=== PATIENT | female | born 1990 | race Caucasian/White ===

== ENCOUNTER → 2020-02-10 | Outpatient (CLI) | payer BC, MEDICAID ==
[~2020-02-10] MED LIST: CPR500T PO; HYDR-3729 PO; Ibuprofen PO; PREN-93 PO
--- NOTE | 2020-02-10 10:28 | Diagnostic Imaging Report ---
PROCEDURE: US OB SINGLE FETUS <14 WKS. TECHNIQUE: Multiple Real-time grayscale images were obtained over the gravid uterus in various projections. INDICATION: dating. FINDINGS: There is an intrauterine gestational sac containing a pole. The crown/rump length measurement is consistent with an approximately 9 week 4 day gestation. The heart rate was recorded at 167 BPM. There is an area of probable subchorionic bleed along the posterior aspect of the gestational sac. The adnexa are unremarkable. IMPRESSION: Single live IUP of 9 weeks 4 days gestational age. The estimated date of confinement sonographically is 09/10/2020. There is a small subchorionic hemorrhage. Dictated by: Dictated on workstation # [id number]
== END ==
LOC: RAD 10:00
PROVIDERS: ATTEND Family Medicine
DX: Z34.91 Encounter for supervision of normal pregnancy, unspecified, first trimester (principal); Z3A.09 9 weeks gestation of pregnancy
CPT/HCPCS: 76801

== ENCOUNTER → 2020-04-13 | Outpatient (CLI) | payer BC ==
--- NOTE | 2020-04-13 16:56 | Diagnostic Imaging Report ---
INDICATION: Routine survey. TECHNIQUE: Multiple real-time grayscale images were obtained over the gravid uterus. COMPARISON: None FINDINGS: Single live intrauterine is identified. heart rate is documented at 149 bpm. position is breech. Cervix is long and closed. It measures 5.6 cm in length. Placenta is anterior, not low-lying. Formal anatomic survey was performed. Four-chamber heart cannot be adequately visualized due to position and maternal body habitus. Otherwise, anatomic survey is grossly unremarkable. Based on today's exam, estimated gestational age is 19 weeks and 3 days with estimated date of delivery of 09/04/2020 Clinical dates: 18 weeks and 3 days with estimated date of delivery of 09/11/2020. Please see below for additional details and size measurements. IMPRESSION: 1. Single live intrauterine . Again, four-chambered heart is suboptimally visualized. Continued follow-up is advised. 2. Estimated weight above 95th percentile consistent with macrosomia. Again, follow-up is advised. Biometrical measurements are as follows: Biparietal 4.23 cm, age 18 weeks 6 days. Head circumference 16.77 cm, age 19 weeks 4 days. Abdominal circumference 12.97 cm, age 18 weeks 4 days. Femur length 3.38 cm, age 20 weeks 5 days. Sonographic estimate age: 19 weeks 3 days. Sonographic estimated date of delivery: 09/04/2020. Estimated Weight: 295 gm (+/- 43 gm). LMP percentile: 95%. heart rate: 149 beats per minute. number: 1 of 1. Dictated by: Dictated on workstation # [id number]
== END ==
LOC: RAD 14:35
PROVIDERS: ATTEND Family Medicine
DX: Z36.9 Encounter for antenatal screening, unspecified (principal)
CPT/HCPCS: 76805

== ENCOUNTER → 2020-06-09 | Outpatient (CLI) | payer BC ==
--- NOTE | 2020-06-09 13:37 | Diagnostic Imaging Report ---
INDICATION: Evaluate growth. TECHNIQUE: Multiple real-time grayscale images were obtained over the gravid uterus. COMPARISON: 04/13/2020. FINDINGS: There is a single live fetus in a cephalic presentation. heart rate was recorded at 140 bpm. Placenta is anterior. Amniotic fluid index is 14.3 cm. A four-chamber heart view is noted on today's study. Biometrical measurements are as follows: Biparietal 7.15 cm, age 28 weeks 5 days. Head circumference 27.27 cm, age 29 weeks 6 days. Abdominal circumference 25.65 cm, age 29 weeks 6 days. Femur length 5.45 cm, age 28 weeks 6 days. Sonographic estimate age: 29 weeks 3 days. Sonographic estimated date of delivery: 08/22/2020. Estimated Weight: 1388 gm (+/- 203 gm). LMP percentile: 98%. heart rate: 140 beats per minute. number: 1 of 1. IMPRESSION: Single live IUP measuring approximately 29-30 weeks gestational age. Four-chamber heart view was visualized on today's exam. Dictated by: Dictated on workstation # [id number]
== END ==
LOC: RAD 12:31
PROVIDERS: ATTEND Family Medicine
DX: Z34.83 Encounter for supervision of other normal pregnancy, third trimester (principal); Z3A.29 29 weeks gestation of pregnancy
CPT/HCPCS: 76805

== ENCOUNTER 2020-09-06 05:08 | Outpatient (CLI) | payer BC ==
[~2020-09-06] VITALS: Ht 167.7 cm; Wt 131.5 kg
[2020-09-06 05:25] VITALS: BP 131/73
[2020-09-06 05:27] LABS: CLARITY,URINE CLEAR; COLOR,URINE YELLOW; GLUCOSE, URINE (UA) NEGATIVE (NEGATIVE); KETONES,URINE NEGATIVE (NEGATIVE); LEUKOCYTE ESTERASE ,URINE 1+ (NEGATIVE); NITRITE,URINE NEGATIVE (NEGATIVE); PROTEIN,URINE TRACE (NEGATIVE)
[2020-09-06 05:38] LABS: BACTERIA,URINE TRACE /HPF; BILIRUBIN,URINE 1+ (NEGATIVE); SQUAMOUS EPITHELIAL CELL,UR >50 /HPF; WBC,URINE 0-2 /HPF
[2020-09-06 06:43] VITALS: BP 131/73
--- NOTE | 2020-09-07 08:38 | Physician Query-Final Dx ---
BINU GARCIA 09/07/20 0838: Clinic Account Progress/Dx Physician Query: Please give diagnosis Please include # weeks gestation Date of Service Sep 06, 2020 at 05:08 SHADE HESS MD 09/08/20 0714: Clinic Account Progress/Dx DIAGNOSIS: Diagnosis 1. IUP at 39wks, non-labor BINU GARCIA Sep 07, 2020 08:38 SHADE HESS MD Sep 08, 2020 07:14
== END 2020-09-06 07:40 | disposition home or self-care (01) ==
LOC: WSo 05:08 → LDRP 05:09 → WSo 07:40
PROVIDERS: ATTEND Family Medicine
DX: O62.9 Abnormality of forces of labor, unspecified (principal); Z3A.00 Weeks of gestation of pregnancy not specified
CPT/HCPCS: 81000; G0463; 99213

== ENCOUNTER 2020-09-07 03:33 | Inpatient (IN) | payer BC ==
[2020-09-07] VITALS (41 sets, daily range): BP systolic 90–138; BP diastolic 53–72
[~2020-09-07] VITALS: Ht 167.7 cm; Wt 131.8 kg
[2020-09-07] MEDS ORDERED: D5 LR IV SOLUTION 1,000 ML IV ONE (03:56)
[2020-09-07] MEDS ORDERED: AMPICILLIN 2,000 MG/14.8 ML (IV USE) ONE (03:56)
[2020-09-07] MEDS ORDERED: LACTATED RINGERS 1,000 ML IV ONE ×3 (03:56→05:15)
[2020-09-07] MEDS ORDERED: WATER (STERILE) FOR INJECTION 20 ML ONE (03:57)
[2020-09-07] MEDS ORDERED: AMPICILLIN FOR IV USE 2,000 MG in WATER (STERILE) FOR INJECTION 14.8 ML IV SCH (03:59)
[2020-09-07] MEDS ORDERED: D5 LR IV SOLUTION 1,000 ML IV SCH (04:00)
[2020-09-07] MEDS ORDERED: fentaNYL 2 mcg/ml BUPIVA 0.125 100 ML ONE (04:14)
[2020-09-07] MEDS ORDERED: fentaNYL 2 mcg/ml BUPIVA 0.125 100 ML IV SCH ×2 (04:15→05:15)
[2020-09-07] MEDS ORDERED: NALOXONE 0.4 MG/ML 1 ML (NARCAN) VIAL IV PRN ×2 (04:15→05:15)
[2020-09-07] MEDS ORDERED: CATHETER FLUSH 10 ML SYR IV PRN ×2 (04:15→05:15)
[2020-09-07 04:20] LABS: BASOPHILS % (AUTO) 0 % (0-10); EOSINOPHILS # (AUTO) 0.1 10^3/uL (0.0-0.3); EOSINOPHILS % (AUTO) 1 % (0-10); HEMATOCRIT 38 % (35-52); HEMOGLOBIN 12.9 g/dL (11.5-16.0); LYMPHOCYTES % (AUTO) 21 % (12-44); MEAN CORPUSCULAR HEMOGLOBIN 30 pg (25-34); MEAN CORPUSCULAR HGB CONC 34 g/dL (32-36); MEAN CORPUSCULAR VOLUME 87 fL (80-99); MEAN PLATELET VOLUME 11.4 fL (9.0-12.2); MONOCYTES # (AUTO) 0.6 10^3/uL (0.0-1.0); MONOCYTES % (AUTO) 7 % (0-12); NEUTROPHILS # (AUTO) 6.5 10^3/uL (1.8-7.8); NEUTROPHILS % (AUTO) 71 % (42-75); PLATELET COUNT 220 10^3/uL (130-400); WHITE BLOOD COUNT 9.2 10^3/uL (4.3-11.0)
[2020-09-07] MEDS ORDERED: fentaNYL INJ 100 MCG/2 ML AMP ONE (04:59)
[2020-09-07] MEDS ORDERED: BUPIVACAINE 0.25% 30 ML (SENSORCAINE) VIAL ONE (04:59)
[2020-09-07] MEDS ORDERED: diphenhydrAMINE 50 MG/ML INJ (BENADRYL) IV PRN (05:15)
[2020-09-07] MEDS ORDERED: ONDANSETRON 4 MG/2 ML (SDV) Z0FRAN IV PRN (05:15)
[2020-09-07] MEDS ORDERED: CATHETER FLUSH 10 ML SYR IV SCH ×2 (06:00→14:00)
--- NOTE | 2020-09-07 06:32 | History & Physical-OB ---
OB - Chief Complaint & HPI Date/Time Date of Admission: Date of Admission: Sep 07, 2020 at 03:59 Date seen by a Provider: Sep 07, 2020 Time Seen by a Provider: 06:30 Chief Complaint/History OB-Reason for Admission/Chief: Onset of Labor Hx : 3 Hx Para: 2 Expected Date of Delivery: Sep 10, 2020 Gestational Age in Weeks: 39 Gestational Age in Days: 5 Admission Nurse Assessment Rev: Yes History of Labs GBS positive at 36 weeks Allergies and Home Medications Allergies Coded Allergies: No Known Drug Allergies (Unverified , 05/17/16) Home Medications No Active Prescriptions or Reported Meds Patient Home Medication List Home Medication List Reviewed: Yes OB - History Hx of Present Care: Yes Ultrasounds: Normal mid trimester US Obstetrical Complications: None Medical Complications: None Delivery History Hx Blood Disorders: No Adverse Rxn to Tranfusion: No Patient Past Medical History No chronic medical problems Social History/Family History 2nd Hand Smoke Exposure: No Immunizations Hepatitis A: Yes Hepatitis B: Yes Tetanus Booster (TDap): Less than 5yrs Date of Influenza Vaccine: Mar 19, 2020 OB - Admission Exam Physical Exam Vitals: Vital Signs 09/07/20 09/07/20 05:32 05:41 Temp 36.1 Pulse 68 Resp 18 B/P (MAP) 104/59 (74) Pulse Ox 98 O2 Delivery Room Air HEENT: Moist Membranes Heart: Rhythm Normal Lungs: Clear Extremities: Normal Cervical Dilatation: 4cm (on presentation) Effacement: 50% Membranes: Intact Heart Rate: 140's Accelerations: Accelerations Present Short Term Variability: Present Fci Variability: Average (6-25) Contractions on Admission: < 5 Minutes Apart Intensity: Moderate Labs Laboratory Tests Test 09/07/20 04:08 Range/Units White Blood Count 9.2 4.3-11.0 10^3/uL Red Blood Count 4.36 3.80-5.11 10^6/uL Hemoglobin 12.9 11.5-16.0 g/dL Hematocrit 38 35-52 % Mean Corpuscular Volume 87 80-99 fL Mean Corpuscular Hemoglobin 30 25-34 pg Mean Corpuscular Hemoglobin Concent 34 32-36 g/dL Red Cell Distribution Width 13.4 10.0-14.5 % Platelet Count 220 130-400 10^3/uL Mean Platelet Volume 11.4 9.0-12.2 fL Immature Granulocyte % (Auto) 0 % Neutrophils (%) (Auto) 71 42-75 % Lymphocytes (%) (Auto) 21 12-44 % Monocytes (%) (Auto) 7 0-12 % Eosinophils (%) (Auto) 1 0-10 % Basophils (%) (Auto) 0 0-10 % Neutrophils # (Auto) 6.5 1.8-7.8 10^3/uL Lymphocytes # (Auto) 2.0 1.0-4.0 10^3/uL Monocytes # (Auto) 0.6 0.0-1.0 10^3/uL Eosinophils # (Auto) 0.1 0.0-0.3 10^3/uL Basophils # (Auto) 0.0 0.0-0.1 10^3/uL Immature Granulocyte # (Auto) 0.0 0.0-0.1 10^3/uL OB - Assessment/Plan/Diagnosis Assessment Assessment: active labor (at term 39w5d) Admission Dx 1. IUP at term 39w5d in labor 2. GBS positive Admission Status: Inpatient Order (span 2 midnights) Reason for Inpatient Admission: L&D Plan Plan: Expectant Management Induction Method: AROM Other Plan -epidural -pitocin if needed -Ampicillin protochol due to GBS SHADE HESS MD Sep 07, 2020 06:32
[2020-09-07] MEDS ORDERED: OXYTOCIN PRE-MIX DRIP 500 ML IV SCH ×2 (06:45→10:15)
[2020-09-07] MEDS ORDERED: AMPICILLIN FOR IV USE 1,000 MG in WATER (STERILE) FOR INJECTION 7.4 ML IV SCH (08:00)
--- NOTE | 2020-09-07 10:03 | OB Labor & Delivery Record ---
L&D History Date of Service Date of Service: Sep 07, 2020 History Expected Date of Delivery: Sep 10, 2020 Gestational Age in Weeks: 39 Hx : 3 Hx Para: 3 Complications Events: Routine care Operative Indications (Cesarea: N/A-Vaginal Delivery Intrapartal Events: None Other Complications GBS positive (2 doses of amp received) L&D Stage1 Stage One Onset of Labor - Date: Sep 07, 2020 Onset of Labor - Time: 02:00 Monitors and Tracing Monitor Mode: Internal Heart Rate: 140 Monitor Accelerations: Uniform Monitor Decelerations: None Station: -3 Skilled Nursing Variability: Average (6-10) Short Term Variability: Present Presentation: Vertex Vital Signs VS - Last 72 Hours, by Label 09/07/20 09/07/20 09/07/20 09/07/20 04:22 04:50 05:05 05:15 Temp 36.5 Pulse 86 73 86 82 Resp 18 18 18 18 B/P (MAP) 133/63 (86) 120/70 (87) 114/58 (76) Pulse Ox 98 99 99 O2 Delivery Room Air Room Air Room Air Room Air 09/07/20 09/07/20 09/07/20 09/07/20 05:20 05:23 05:26 05:29 Pulse 81 80 78 83 Resp 18 18 20 18 B/P (MAP) 118/60 (79) 109/58 (75) 109/65 (80) 112/59 (76) Pulse Ox 99 99 98 99 O2 Delivery Room Air Room Air Room Air Room Air 09/07/20 09/07/20 09/07/20 09/07/20 05:32 05:35 05:38 05:41 Temp 36.1 Pulse 66 73 71 68 Resp 18 18 18 18 B/P (MAP) 105/59 (74) 103/58 (73) 111/62 (78) 104/59 (74) Pulse Ox 99 97 97 98 O2 Delivery Room Air Room Air Room Air Room Air 09/07/20 09/07/20 09/07/20 09/07/20 05:44 05:50 05:55 06:00 Pulse 76 72 73 71 Resp 18 18 18 18 B/P (MAP) 92/58 (69) 90/56 (67) 96/60 (72) 90/53 (65) Pulse Ox 100 97 97 98 O2 Delivery Room Air Room Air Room Air Room Air 09/07/20 09/07/20 09/07/20 09/07/20 06:05 06:10 06:25 06:40 Pulse 71 74 79 74 Resp 18 18 18 18 B/P (MAP) 107/55 (72) 100/56 (71) 100/56 (71) 99/54 (69) Pulse Ox 98 99 100 97 O2 Delivery Room Air Room Air Room Air Room Air 09/07/20 06:55 Pulse 79 Resp 18 B/P (MAP) 97/53 (68) Pulse Ox 99 O2 Delivery Room Air Signs of Distress by FHT Signs of Distress no Rupture of Membranes Spontaneous Ruture of Membrane: No Amniotic Membrane Rupture Time: 0645 Amniotic Membrane Fluid Desc.: Clear Vaginal Bleeding Description: None Induction/Anesthesia Epidural Cath Placement - Time: 521 L&D Stage2 Stage Two Stage II Date: Sep 07, 2020 Stage II Time: 09:43 Monitors and Tracing Monitor Mode: Internal Heart Rate: 140 Monitor Accelerations: Uniform Monitor Decelerations: None Skilled Nursing Variability: Average (6-10) Short Term Variability: Present Position: Left Occiput Anterior Presentation: Vertex Signs of Distress by FHT Signs of Distress no Cord Descript/Complications Cord Vessel Description: 3 Vessels Delivery Type Delivery Method: Spontaneous Vaginal Anterior Shoulder: Left Episiotomy/Perineal Laceration Episiotomy Description: Perineal Extension/lac, 1st degree Sutures Used: Vicryl Condition of Delivery 1 minute Comment: 8 5 minute Comment: 9 Condition of Condition of : Living Exam: No Observed Abnormalities Resuscitation Resuscitation: N/A - Spontaneous Resp L&D Stage3 Stage Three Stage III Date: Sep 07, 2020 Stage III Time: 09:48 Pictocin Pitocin ml/hr: 125 Placenta Delivery Placenta Delivery: Spontaneous Delivery Summary Summary Estimated blood loss (mL): 250 Condition of Delivery Examined: Cervix Examined Post Hemorrhage: No Intervention Required none SHADE HESS MD Sep 07, 2020 10:02
[2020-09-07] MEDS ORDERED: BENZOCAINE/MENTHOL (DERMOPLAST) 60 ML CAN TP PRN (10:15)
[2020-09-07] MEDS ORDERED: WITCH HAZEL(TUCKS) 40 EA JAR TOP PRN (10:15)
[2020-09-07] MEDS ORDERED: MEASLES,MUMPS,RUBELLA 1 EA INJ SQ ONE (10:15)
[2020-09-07] MEDS ORDERED: TETANUS,DIPTH,PERTUSS P/F (BOOSTRIX) 0.5 ML VIAL IM ONE (10:15)
[2020-09-07] MEDS: IBUPROFEN 600 MG (MOTRIN) TAB PO SCH ×2 (11:42→17:55)
[2020-09-07] MEDS: ACETAMINOPHEN 500 MG TAB (TYLENOL) PO SCH ×2 (11:43→17:55)
[2020-09-07] MEDS ORDERED: DOCUSATE SODIUM 100 MG (COLACE) CAP PO SCH (21:00)
[2020-09-08 01:49] VITALS: BP 114/60
[2020-09-08] MEDS: ACETAMINOPHEN 500 MG TAB (TYLENOL) PO SCH (01:49)
[2020-09-08] MEDS: IBUPROFEN 600 MG (MOTRIN) TAB PO SCH (01:49)
[2020-09-08 05:00] VITALS: BP 112/63
[2020-09-08 06:01] LABS: BASOPHILS % (AUTO) 0 % (0-10); EOSINOPHILS # (AUTO) 0.1 10^3/uL (0.0-0.3); EOSINOPHILS % (AUTO) 1 % (0-10); HEMATOCRIT 35 % (35-52); HEMOGLOBIN 11.7 g/dL (11.5-16.0); LYMPHOCYTES % (AUTO) 23 % (12-44); MEAN CORPUSCULAR HEMOGLOBIN 29 pg (25-34); MEAN CORPUSCULAR HGB CONC 33 g/dL (32-36); MEAN CORPUSCULAR VOLUME 88 fL (80-99); MEAN PLATELET VOLUME 11.3 fL (9.0-12.2); MONOCYTES # (AUTO) 0.6 10^3/uL (0.0-1.0); MONOCYTES % (AUTO) 6 % (0-12); NEUTROPHILS # (AUTO) 6.2 10^3/uL (1.8-7.8); NEUTROPHILS % (AUTO) 70 % (42-75); PLATELET COUNT 197 10^3/uL (130-400); WHITE BLOOD COUNT 8.9 10^3/uL (4.3-11.0)
--- NOTE | 2020-09-08 07:19 | Discharge Summary ---
Diagnosis/Chief Complaint Date of Admission Sep 07, 2020 at 03:59 Date of Discharge September 08, 2020 Discharge Date: Sep 08, 2020 Discharge Time: 12:00 Admission Diagnosis Admission Diagnosis 1. Intrauterine at term 39 weeks Discharge Diagnosis 1. Intrauterine at term 39 weeks Reason Hospital Visit 29-year-old 3 now term 3 who presented to women's services in the morning of September 07, 2020 for labor. She was going to be an induction in the morning of September 07 but she came in earlier in the morning in full labor. Her EDC is noted to be September 09, 2020. Her group B strep status at 36 weeks was positive. Discharge Summary-OBS Procedures 1. Epidural per anesthesia 2. Spontaneous vaginal delivery 3. Repair of minor perineal laceration Discharge Physical Examination Allergies: Coded Allergies: No Known Drug Allergies (Unverified , 05/17/16) Vitals & I&Os Vital Signs Date Time Temp Pulse Resp B/P (MAP) Pulse Ox O2 Delivery O2 Flow Rate FiO2 09/08/20 05:00 36.3 76 18 112/63 (79) 99 Room Air General Appearance: No Acute Distress Respiratory: Clear to Auscultation Cardiovascular: Regular Rate Abdominal: Soft (with uterus firm) Hospital Course Was the Problem List Reviewed?: Yes following delivery patient underwent epidural per anesthesia and tolerated well. She did receive ampicillin protocol due to the group B strep status. Shortly after this she underwent amniotomy at 6 cm dilated. Fluid was noted to be clear. She continued to contract ultimately going on to completion. She delivered over a very minor perineal laceration a term viable male. He was delivered spontaneous vaginal without suction assistance. Infant received Apgars of 8 at 1 minute and 9 at 5 minutes. Following delivery patient underwent routine care orders. She had no complications during the remainder of hospital stay. Her hemoglobin today after delivery was 11.7 compared to admission of 12.9. All questions were answered and she was dismissed during the early afternoon of September 08, 2020 Pending Labs Laboratory Tests 09/08/20 05:44: White Blood Count 8.9, Red Blood Count 3.98, Hemoglobin 11.7, Hematocrit 35, Mean Corpuscular Volume 88, Mean Corpuscular Hemoglobin 29, Mean Corpuscular Hemoglobin Concent 33, Red Cell Distribution Width 13.5, Platelet Count 197, Mean Platelet Volume 11.3, Immature Granulocyte % (Auto) 0, Neutrophils (%) (Auto) 70, Lymphocytes (%) (Auto) 23, Monocytes (%) (Auto) 6, Eosinophils (%) (Auto) 1, Basophils (%) (Auto) 0, Neutrophils # (Auto) 6.2, Lymphocytes # (Auto) 2.0, Monocytes # (Auto) 0.6, Eosinophils # (Auto) 0.1, Basophils # (Auto) 0.0, Immature Granulocyte # (Auto) 0.0 Discharge Instructions to patient/family Please see electronic discharge instructions given to patient. Discharge Medications Reviewed and agree with Discharge Medication list on patient's Discharge Instruction sheet SHADE HESS MD Sep 08, 2020 07:19
--- NOTE | 2020-09-08 07:20 | Discharge Inst-Women's Service ---
Discharge Inst-Women's Serv Depart Medication/Instructions New, Converted or Re-Newed RX: Other Problems Reviewed?: Yes Consults/Follow Up Additional Follow Up: Yes (with Dr. Hess in 6 weeks) Activity Activity: Activity as Tolerated Driving Instructions: You May Drive Nothing Inside Vagina: No [place] (for 6 weeks) Diet Discharge Diet: Regular Diet Return to The Hospital For: as below Symptoms to Report to : Bleeding Excessive, Fever Over 101 Degrees F, Vaginal Discharge Foul For Any Problems or Questions: Contact Your Physician SHADE HESS MD Sep 08, 2020 07:20
[2020-09-08 08:00] VITALS: BP 126/63
--- NOTE | 2020-09-08 08:16 | Anesthesia-Regional Post-Op ---
Regional Patient Condition Mental Status: Alert, Oriented x3 Circulation: Same as Pre-Op Headache: Absent Sensation: Full Recovery Motor Block: Absent Post Op Complications Complications None Follow Up Care/Instructions Patient Instructions None needed. Anesthesia/Patient Condition Patient is doing well, no complaints, stable vital signs, no apparent adverse anesthesia problems. No complications reported per nursing. LEONARD MULLINS CRNA Sep 08, 2020 08:15
[2020-09-08 12:20] VITALS: BP 126/63
== END 2020-09-08 12:20 | disposition home or self-care (01) | DRG 807 ==
LOC: WSo 03:33 → LDRP 03:34 → WSo 04:31 → LDRP 16:50 → WS 09-08 15:50
PROVIDERS: ADMIT Family Medicine; ATTEND Family Medicine
PROC: 10E0XZZ Delivery of Products of Conception, External Approach (ICD-10-PCS; principal; 2020-09-07)
PROC: 0HQ9XZZ Repair Perineum Skin, External Approach (ICD-10-PCS; 2020-09-07)
DX: O99.824 Streptococcus B carrier state complicating childbirth (principal); Z37.0 Single live birth; Z3A.39 39 weeks gestation of pregnancy; O70.0 First degree perineal laceration during delivery
CPT/HCPCS: 36415; 85025; 86850; 86900; 86901; 90715; 99212